=== PATIENT | male | born 1975 | race Two or more races ===

== ENCOUNTER 2016-06-16 11:34 | Emergency (ER) | payer SELFPAY ==
[~2016-06-16] VITALS: Ht 162.6 cm; Wt 77.8 kg
[2016-06-16] MEDS ORDERED: SODIUM CHLORIDE 0.9% 1,000 ML IV ONE (12:52)
[2016-06-16] MEDS ORDERED: ASPIRIN 81 MG TABLET CHEW PO ONE (13:00)
[2016-06-16] MEDS ORDERED: SODIUM CHLORIDE FLUSH 10ML SYR IVF ONE (13:00)
[2016-06-16 13:22] LABS: HEMOGLOBIN 15.8 g/dL (13.7-18.0)
[2016-06-16 13:37] LABS: BLOOD UREA NITROGEN 17 mg/dL (7-18)
[2016-06-16 13:42] LABS: IS PT STATUS REG ER OR PRE ER? YES
[2016-06-16] MEDS ORDERED: MAALOX/HYOSCYAMINE/LIDOCAINE 45 ML BOTTLE ONE (16:12)
[2016-06-16] MEDS ORDERED: ASPIRIN 81 MG TABLET CHEW ONE (16:12)
[2016-06-16] MEDS ORDERED: KETOROLAC 30 MG/1 ML ONE (16:27)
[2016-06-16] MEDS ORDERED: KETOROLAC 30 MG/1 ML IM ONE (16:30)
[2016-06-16] MEDS ORDERED: MAALOX/HYOSCYAMINE/LIDOCAINE 45 ML BOTTLE PO ONE (16:30)
[2016-06-16 17:07] VITALS: BP 103/67
== END 2016-06-16 17:19 | disposition home or self-care (01) ==
LOC: ED 17:13
DX: R07.89 Other chest pain (principal); E11.9 Type 2 diabetes mellitus without complications
CPT/HCPCS: 36415; 71020; 80048; 82040; 83880; 84484; 85025; 93005; 96372; 99285; J1885